=== PATIENT | female | born 1975 | race Caucasian/White ===

== ENCOUNTER 2025-08-07 12:26 | Outpatient (CLI) | payer MEDICAID | END 2025-08-07 12:27 | disposition home or self-care (01) | LOC: CSHWCC 12:26 | PROVIDERS: ATTEND Nurse Practitioner Family | DX: L89.613 Pressure ulcer of right heel, stage 3 (principal) | CPT/HCPCS: 11042; 99213; G0463 ==

== ENCOUNTER 2025-08-14 09:08 | Outpatient (CLI) | payer MEDICAID | END 2025-08-14 09:09 | disposition home or self-care (01) | LOC: CSHWCC 09:08 | PROVIDERS: ATTEND Nurse Practitioner Family | DX: L89.613 Pressure ulcer of right heel, stage 3 (principal); Z94.5 Skin transplant status | CPT/HCPCS: 11042 ==

== ENCOUNTER 2025-08-21 09:20 | Outpatient (CLI) | payer MEDICAID | END 2025-08-21 09:21 | disposition home or self-care (01) | LOC: CSHWCC 09:20 | PROVIDERS: ATTEND Nurse Practitioner Family | DX: L89.613 Pressure ulcer of right heel, stage 3 (principal); Z94.5 Skin transplant status | CPT/HCPCS: 11042 ==

== ENCOUNTER 2025-08-28 10:07 | Outpatient (CLI) | payer MEDICAID | END 2025-08-28 10:08 | disposition home or self-care (01) | LOC: CSHWCC 10:07 | PROVIDERS: ATTEND Nurse Practitioner Family | DX: L89.613 Pressure ulcer of right heel, stage 3 (principal); Z94.5 Skin transplant status | CPT/HCPCS: 97597; 99213; G0463 ==

== ENCOUNTER 2025-09-30 09:25 | Outpatient (CLI) | payer MEDICAID | END 2025-09-30 09:26 | disposition home or self-care (01) | LOC: CSHWCC 09:25 | PROVIDERS: ATTEND Nurse Practitioner Family | DX: L89.613 Pressure ulcer of right heel, stage 3 (principal); Z94.5 Skin transplant status | CPT/HCPCS: 11042; 99213; G0463 ==

== ENCOUNTER 2025-10-07 09:09 | Outpatient (CLI) | payer MEDICAID | END 2025-10-07 09:10 | disposition home or self-care (01) | LOC: CSHWCC 09:09 | PROVIDERS: ATTEND Nurse Practitioner Family | DX: L89.613 Pressure ulcer of right heel, stage 3 (principal); Z94.5 Skin transplant status | CPT/HCPCS: 11042; 99212; G0463 ==

== ENCOUNTER 2025-10-30 09:14 | Outpatient (CLI) | payer MEDICAID | END 2025-10-30 09:15 | disposition home or self-care (01) | LOC: CSHWCC 09:14 | PROVIDERS: ATTEND Nurse Practitioner Family | DX: L89.613 Pressure ulcer of right heel, stage 3 (principal); Z94.5 Skin transplant status ==